=== PATIENT | female | born 1965 | race Caucasian/White ===

== ENCOUNTER 2016-11-29 23:40 | Inpatient (IN) | payer MEDICAID ==
[~2016-11-29] VITALS: Ht 167.6 cm; Wt 81.8 kg
--- NOTE | ~2016-11-29 | EC ---
PATIENT:DANN OWEN DATE OF SERVICE: 11/30/16 SEX: F MEDICAL RECORD: [id number] DATE OF : [birth year] LOCATION:D.M2 D.210 AGE OF PATIENT: 51 ADMISSION DATE: 11/30/16 REFERRING PHYSICIAN: INTERPRETING PHYSICIAN: GERALDINE GARCIA MD ECHOCARDIOGRAM REPORT ECHO CHARGES 4 ECHO COMPLETE CLINICAL DIAGNOSIS: DYSPNEA ECHOCARDIOGRAPHIC MEASUREMENTS (adult normal given) AC root (d.<3.7cm) 3.2 LV Septum d (<1.2 cm> 1.6 Valve Excursion 2.1 LV Septum (systole) 2.2 Left Atria (s.<4.0cm> 4.1 LVPW d(<1.2cm) 1.5 RV (d.<2.3cm) 2.4 LVPW (sytole) 2.2 LV diastole(<5.6CM) 4.7 MV E-F(>70mm/sec) LV systole 2.6 LVOT Diameter 1.7 MV exc.(>10mm) Est.ejection fraction (50-75%) Pericardial Effusion N DOPPLER: LVIT A 66.0 E 83.0 LA RVSP 40.0 LVOT 128 AOP1/2T Asc. Ao 178 RVOT 69.0 RA PA 100 AV Gradient Peak 13.0 AV Mean 6.9 AV Area 1.9 MV Gradient Peak 4.8 MV Mean 1.9 MV Area COMMENTS: Granite Cutter Apprentice: Ksenia HENDERSONOE Job Setter:1 Dr. Garcia TAPE# PACS DATE OF SERVICE: 11/30/2016 FINDINGS: 1. Left ventricular chamber size is within normal limits. Left ventricular systolic function is normal. Overall ejection fraction estimated at 60%. 2. Left atrium is enlarged at 4.1 cm. Right atrium and right ventricular chamber sizes are upper limits of normal. 3. Valvular structures have normal structure and motion. 4. Doppler interrogation reveals [id number] aortic insufficiency, moderate mitral regurgitation, moderate tricuspid regurgitation, no other ECHOCARDIOGRAM REPORT [id number] DANN OWEN valvular insufficiency or stenosis and pulmonary systolic pressure is estimated at 40 mmHg. 5. No evidence of pericardial effusion or left ventricular thrombus. TRANSINT:[id number] Voice Confirmation ID: [id number] DOCUMENT ID: [id number] GERALDINE GARCIA MD CC: [id number] DICTATION DATE: 12/01/16 1059 WATER TREATMENT PLANT MECHANIC: 12/01/16 [address] [facility] [address] [id number]
[~2016-11-29 23:40] MED LIST: TENORMIN50 MG PO
[2016-11-30 00:35] LABS: BASOPHILS 0.1 % (0.0-2.0); EOSINOPHILS 1.7 % (0-7); HEMOGLOBIN 14.9 g/dL (12-16); IMMATURE GRANULOCYTES 0.7 % (0-5); LYMPHOCYTES 17.4 % (15-50); MCH 31.3 pg (26.0-34.0); MCHC 32.4 g/dL (31.0-37.0); MCV 96.6 fL (80.0-100.0); MEAN PLATELET VOLUME 10.6 fL (7.4-10.4); MONOCYTES 5.9 % (2-11); NEUTROPHILS 74.2 % (40-80); PLATELET COUNT 230 10x3/uL (130-400); RBC 4.76 10x6/uL (4.00-5.40); RDW 14.5 % (11.5-14.5); WBC 11.5 10x3/uL (4.8-10.8)
[2016-11-30 00:41] LABS: ALBUMIN 3.5 g/dL (3.4-5.0); ANION GAP 14.9 mmol/L (8-16); BILIRUBIN - TOTAL 0.16 mg/dL (0.2-1.3); CALCIUM 8.4 mg/dL (8.5-10.1); CARBON DIOXIDE 25.7 mmol/L (21.0-32.0); CREATININE - SERUM 1.2 mg/dL (0.6-1.3); POTASSIUM - SERUM 3.6 mmol/L (3.5-5.1); PROTEIN - SERUM 7.3 g/dL (6.4-8.2)
[2016-11-30 00:51] LABS: TROPONIN-I 0.024 ng/mL (0.000-0.060)
[2016-11-30 02:37] VITALS: Ht 167.6 cm; Wt 81.8 kg
--- NOTE | 2016-11-30 03:56 | NUR ---
NEW ADMIT FROM EMERGENCY DEPARTMENT TO [facility] [address] MONTAÑO. ADMIT RELATED TO HTN AND CHF. UPON ADMIT VITALS STABLE. ALERT AND ORIENTED. PATIENT IS A FULL CODE. ORIENTED TO UNIT. PROVIDED A PM SNACK. DENIES PAIN AT THIS TIME. STATES SHE HAS NO FAMILY IN THIS AREA. SHE LIVES WITH A BOYFRIEND. ENCOURAGE TO EXPRESS NEEDS. CALL LIGHT IN REACH. CONTINUE TO MONITOR.
--- NOTE | 2016-11-30 09:15 | NUR ---
ADMINSITERED MORNING MEDICATIONS, PT IN BED, DENIES ANY NEEDS AT THIS TIME, PT ASSESSED, NAD NOTED, CALL LIGHT IN REACH, NAD NOTED, WILL CONTINUE TO MONITOR.
[2016-11-30 12:30] LABS: BASOPHILS 0 % (0.0-2.0); EOSINOPHILS 0 % (0-7); HEMATOCRIT 43.2 % (36.0-48.0); IMMATURE GRANULOCYTES 0.3 % (0-5); LYMPHOCYTES 15.8 % (15-50); MCH 30.8 pg (26.0-34.0); MCHC 32.4 g/dL (31.0-37.0); MCV 95.2 fL (80.0-100.0); MEAN PLATELET VOLUME 10.7 fL (7.4-10.4); MONOCYTES 3.2 % (2-11); NEUTROPHILS 80.7 % (40-80); PLATELET COUNT 219 10x3/uL (130-400); RBC 4.54 10x6/uL (4.00-5.40); RDW 14.3 % (11.5-14.5)
[2016-11-30 12:32] LABS: WBC 6.7 10x3/uL (4.8-10.8)
[2016-11-30 12:49] LABS: HEMOGLOBIN A1C 5.4 % (4.8-6.0)
[2016-11-30 13:05] LABS: CKMB 2.4 U/L (0.0-3.6); CREATINE KINASE 99 UL (21-215)
[2016-11-30 13:06] LABS: TROPONIN-I 0.116 ng/mL (0.000-0.060)
[2016-11-30] MEDS ORDERED: ZOLOFT50 MG PO (14:39)
[2016-11-30] MEDS ORDERED: BENZTROPINE MESY1 MG PO (14:40)
[2016-11-30] MEDS ORDERED: XANAX1 MG PO (14:41)
[2016-11-30] MEDS ORDERED: PROPRANOLOL HCL20 MG PO (14:41)
[2016-11-30] MEDS ORDERED: ABILIFY15 MG PO (14:42)
--- NOTE | 2016-11-30 17:24 | NUR ---
PT VERY ANXIOUS BECAUSE DR HAS NOT ORDERED PAIN AND ANXIETY MEDS. NO NEW ORDERS HAVE BEEN PUT IN, REGARDING MEDS. PLACED SCD'S BILAT ON PT. PT DENIES ANY OTHER NEEDS AT THIS TIME. CALL LIGHT IN REACH, NAD NOTED, WILL CONTINUE TO MONITOR.
[2016-11-30 18:17] LABS: CKMB 1.7 U/L (0.0-3.6); CREATINE KINASE 83 UL (21-215)
[2016-11-30 18:28] LABS: TROPONIN-I 0.113 ng/mL (0.000-0.060)
[2016-11-30 20:00] VITALS: BP 133/70
--- NOTE | 2016-11-30 20:30 | NUR ---
ADMIN SCHED MEDS AND TYLENOL 500MG PO PER ORDER REC FROM STEPHEN YEH RN FOR PATIENT'S C/O HEADACHE.
[2016-12-01 00:48] VITALS: BP 154/75
--- NOTE | 2016-12-01 00:54 | NUR ---
AWAKE WATCHING TV. REQUESTED SODA AND APPLESAUCE.
[2016-12-01 04:59] VITALS: BP 130/80
--- NOTE | 2016-12-01 05:00 | NUR ---
AWAKE WATCHING TV. REQUESTED A MILK AND QUENTIN CRACKERS.
[2016-12-01 05:34] LABS: BASOPHILS 0.1 % (0.0-2.0); EOSINOPHILS 0.4 % (0-7); HEMATOCRIT 39.6 % (36.0-48.0); HEMOGLOBIN 12.7 g/dL (12-16); IMMATURE GRANULOCYTES 0.3 % (0-5); LYMPHOCYTES 24.1 % (15-50); MCH 30.6 pg (26.0-34.0); MCHC 32.1 g/dL (31.0-37.0); MCV 95.4 fL (80.0-100.0); MEAN PLATELET VOLUME 10.7 fL (7.4-10.4); MONOCYTES 6.9 % (2-11); NEUTROPHILS 68.2 % (40-80); PLATELET COUNT 194 10x3/uL (130-400); RBC 4.15 10x6/uL (4.00-5.40); RDW 14.2 % (11.5-14.5)
[2016-12-01 05:39] LABS: WBC 12.1 10x3/uL (4.8-10.8)
[2016-12-01 05:55] LABS: ALBUMIN 2.9 g/dL (3.4-5.0); ANION GAP 9.5 mmol/L (8-16); BILIRUBIN - TOTAL 0.2 mg/dL (0.2-1.3); CALCIUM 8.3 mg/dL (8.5-10.1); CARBON DIOXIDE 32.1 mmol/L (21.0-32.0); CREATININE - SERUM 1.1 mg/dL (0.6-1.3); POTASSIUM - SERUM 3.6 mmol/L (3.5-5.1)
--- NOTE | 2016-12-01 07:45 | NUR ---
Verbalized name and , oxygen in place at 3l/nc. SCD hose in place. Complains of generalized arthritic pain. B/P 186/92. Scheduled routine medications to be administered.
[2016-12-01 07:49] VITALS: BP 186/92
[2016-12-01 08:04] LABS: CKMB 1.5 U/L (0.0-3.6); CREATINE KINASE 55 UL (21-215); TROPONIN-I 0.041 ng/mL (0.000-0.060)
--- NOTE | 2016-12-01 08:30 | NUR ---
Verbalized name and , sitting on side of bed completing breakfast, no complaints voiced. Oxygen replaced to nares. Respirations easy. Daughter at bedside.
[2016-12-01 11:19] VITALS: BP 179/100
[2016-12-01] MEDS ORDERED: BENAZEPRIL HCL10 MG PO (13:51)
[2016-12-01] MEDS ORDERED: NORVASC10 MG PO (13:51)
[2016-12-01] MEDS ORDERED: CATAPRES0.1 MG PO (13:51)
[2016-12-01] MEDS ORDERED: NICODERM C1 PATCH .1 TRANSDERM (13:51)
[2016-12-01] MEDS ORDERED: K-DUR20 MEQ PO (13:52)
[2016-12-01] MEDS ORDERED: NITRO-DUR0.2 MG TRANSDERM (13:52)
[2016-12-01] MEDS ORDERED: ASPIRIN81 MG PO (13:52)
[2016-12-01] MEDS ORDERED: LASIX40 MG PO (13:53)
--- NOTE | 2016-12-01 14:45 | NUR ---
Orders received for patient to discharge, telemetry removed. Left wrist saline lock removed, catheter intact with no complications noted, tolerated well. Patient removed Nicoderm patch stating " I'm getting me a cigarette as soon as I get out of here." Discharge instructions explained, stressed that medications called to [facility]. Verbbalized understanding. Awaiting arrival of [facility] bus.
--- NOTE | 2016-12-01 16:01 | NUR ---
Patient discharged without any incident, transported out to [facility] bus via W/C.
--- NOTE | 2016-12-01 17:30 | NUR ---
Patient Name: DANN OWEN Admission Status: ER Accout number: [id number] Admission Date: 11-30-2016 : 1965 Admission Diagnosis: Attending: RUFINO Current LOS: 1 Anticipated DC Date: 12-01-2016 Planned Disposition: Home Primary Insurance: MEDICAID [place] LATE ENTRY: Discharge Planning Comments: * Is the patient Alert and Oriented? Yes 0 * How many steps to enter\exit or inside your home? NONE 0 * PCP NONE REPORTS SHE WILL BE GOING TO SEE DR. EVETTE PARDO IN [place] FOR PRIMARY CARE BUT DOES NOT YET HAVE AN APPOINTMENT 0 * [facility] [address] * Preadmission Environment Home with Family 0 * ADLs Independent 0 * Equipment None 0 * Other Equipment NO MEDICAL EQUIPMENT PROVIDER PREFERENCE 0 * List name and contact numbers for known caregivers / representatives who currently or will assist patient after discharge: WILMER RODRIGUEZ, SISTER, WORKS AT [facility], 0 * Community resources currently utilized None 0 * Please name any agencies selected above. NONE 0 * Additional services required to return to the preadmission environment? No 0 * Can the patient safely return to the preadmission environment? Yes 0 * Has this patient been hospitalized within the prior 30 days at any hospital? No 0 CM RECEIVED ORDER FOR DRUG/ALCOHOL ASSESSMENT. CM MET WITH PT IN ROOM TO DISCUSS DISCHARGE PLANNING AND NEEDS. PT REPORTS LIVING AT HOME INDEPENDENTLY WITH HER BOY FRIEND. PT HAS NO MEDICAL EQUIPMENT AND NO OUTSIDE SERVICES ASSISTING IN THE HOME. CM DISCUSSED AVAILABILITY OF HOME HEALTH, REHAB SERVICES AND MEDICAL EQUIPMENT. PT DENIES DISCHARGE NEEDS, REPORTS SHE NEEDS [employer] BUS TO PICK HER UP FOR DISCHARGE HOME. PT REPORTS SHE DOES NOT USE DRUGS ON A REGULAR BASIS, REPORTS SHE WAS NOT FEELING GOOD AND SMOKED SOME MARIJUANA WITH A FRIEND AND HAD NOT IDEA IT WAS LACED WITH COCAINE. PT REPORTS SHE MADE A MISTAKE AND WILL NOT DO IT AGAIN. CM OFFERED COMMUNITY RESOURCES LISTING FOR INPATIENT, OUTPATIENT AND SUPPORT GROUPS FOR SUBSTANCE ABUSE ASSSITANCE, PT REFUSED. CM CALLED [employer], , SPOKE TO MARIANNA AND ARRANGE [facility] [facility] BUS TRANSPORT FOR THIS AFTERNOON. CONFIRMATION #[id number]. PT, BEDSIDE NURSE AND FEED MILL MANAGER NURSE NOTIFIED. Triple Air Valve Tester: Joaquin Miner
== END 2016-12-01 16:00 | disposition home or self-care (01) | DRG 305 ==
LOC: D.ER 23:40 → D.M2 11-30 01:45
PROVIDERS: Emergency Medicine; ADMIT Family Medicine
DX: I16.0 Hypertensive urgency (principal); F17.203 Nicotine dependence unspecified, with withdrawal; I11.0 Hypertensive heart disease with heart failure; I50.9 Heart failure, unspecified; J44.9 Chronic obstructive pulmonary disease, unspecified; M06.9 Rheumatoid arthritis, unspecified; F31.9 Bipolar disorder, unspecified; R74.8 Abnormal levels of other serum enzymes

== ENCOUNTER 2017-02-26 12:50 | Emergency (ER) | payer MEDICAID ==
[2016-11-30 02:37] VITALS: BMI 29.1
[~2017-02-26 12:50] MED LIST changes: +ABILIFY15 MG PO; +ASPIRIN81 MG PO; +BENAZEPRIL HCL10 MG PO; +BENZTROPINE MESY1 MG PO; +CATAPRES0.1 MG PO; +K-DUR20 MEQ PO; +LASIX40 MG PO; +NICODERM C1 PATCH .1 TRANSDERM; +NITRO-DUR0.2 MG TRANSDERM; +NORVASC10 MG PO; +PROPRANOLOL HCL20 MG PO; +XANAX1 MG PO; +ZOLOFT50 MG PO
== END 2017-02-26 14:33 | disposition home or self-care (01) ==
LOC: D.ER 12:50
DX: K04.7 Periapical abscess without sinus (principal); G43.909 Migraine, unspecified, not intractable, without status migrainosus; M62.838 Other muscle spasm; I50.9 Heart failure, unspecified; I10 Essential (primary) hypertension

== ENCOUNTER 2017-03-10 23:48 | Emergency (ER) | payer MEDICAID ==
[2016-11-30 02:37] VITALS: BMI 29.1
== END 2017-03-11 00:48 | disposition home or self-care (01) ==
LOC: D.ER 23:48
DX: F41.9 Anxiety disorder, unspecified (principal); F10.10 Alcohol abuse, uncomplicated; Z86.59 Personal history of other mental and behavioral disorders; F17.200 Nicotine dependence, unspecified, uncomplicated

== ENCOUNTER 2017-03-13 04:28 | Emergency (ER) | payer MEDICAID ==
[2016-11-30 02:37] VITALS: BMI 29.1
== END 2017-03-13 06:45 | disposition home or self-care (01) ==
LOC: D.ER 04:28
DX: F41.0 Panic disorder [episodic paroxysmal anxiety] (principal); I10 Essential (primary) hypertension; R06.00 Dyspnea, unspecified; F17.200 Nicotine dependence, unspecified, uncomplicated

== ENCOUNTER 2017-03-19 21:00 | Emergency (ER) | payer MEDICAID ==
[2016-11-30 02:37] VITALS: BMI 29.1
[2017-03-19 21:53] LABS: BASOPHILS 0.1 % (0-2); EOSINOPHILS 2.7 % (0-7); HEMATOCRIT 38.9 % (36.0-48.0); IMMATURE GRANULOCYTES 0.3 % (0-5); LYMPHOCYTES 52.5 % (15-50); MCH 30.7 pg (26.0-34.0); MCHC 33.4 g/dL (31.0-37.0); MCV 91.7 fL (80.0-100.0); MEAN PLATELET VOLUME 10.1 fL (7.4-10.4); MONOCYTES 7.3 % (2-11); NEUTROPHILS 37.1 % (40-80); PLATELET COUNT 180 10x3/uL (130-400); RBC 4.24 10x6/uL (4.00-5.40); RDW 13.9 % (11.5-14.5); WBC 7.8 10x3/uL (4.8-10.8)
[2017-03-19 22:09] LABS: ALBUMIN 3.4 g/dL (3.4-5.0); ALKALINE PHOSPHATASE 78 U/L (46-116); ALT (SGPT) 17 U/L (10-68); BILIRUBIN - TOTAL 0.22 mg/dL (0.2-1.3); CALC OSMOLALITY 277 mosm/kg (275-300); CALCIUM 8.5 mg/dL (8.5-10.1); CARBON DIOXIDE 27.2 mmol/L (21.0-32.0); CHLORIDE - SERUM 99 mmol/L (98-107); CREATININE - SERUM 1.3 mg/dL (0.6-1.3); GLUCOSE 104 mg/dL (74-106); PROTEIN - SERUM 6.5 g/dL (6.4-8.2); SODIUM 138 mmol/L (136-145); UREA NITROGEN 18 mg/dL (7-18); eGFR NON AFRICAN AMERICAN 45 mL/min (90-120)
[2017-03-19 22:12] LABS: POTASSIUM - SERUM 2.9 mmol/L (3.5-5.1)
[2017-03-19 22:21] LABS: CKMB 2.8 U/L (0.0-3.6); CREATINE KINASE 197 UL (21-215); TROPONIN-I < 0.017 ng/mL (0.000-0.060)
[2017-03-20 00:49] LABS: APPEARANCE CLEAR (CLEAR); BILIRUBIN NEGATIVE (NEGATIVE); COLOR YELLOW (YELLOW); GLUCOSE NEGATIVE (NEGATIVE); KETONE NEGATIVE (NEGATIVE); LEUKOCYTE ESTERASE NEGATIVE (NEGATIVE); NITRITE NEGATIVE (NEGATIVE); PROTEIN NEGATIVE (NEGATIVE); UROBILINOGEN NORMAL (NORMAL)
[2017-03-20 00:56] LABS: UDS - AMPHET NEGATIVE QUAL (NEGATIVE); UDS - BARB NEGATIVE QUAL (NEGATIVE); UDS - BENZO POSITIVE QUAL (NEGATIVE); UDS - COCAINE POSITIVE QUAL (NEGATIVE); UDS - METH NEGATIVE QUAL (NEGATIVE); UDS - OPIATE NEGATIVE QUAL (NEGATIVE); UDS - PCP NEGATIVE QUAL (NEGATIVE); UDS - THC POSITIVE QUAL (NEGATIVE)
== END 2017-03-20 03:25 | disposition home or self-care (01) ==
LOC: D.ER 21:00
PROVIDERS: Family Medicine; Physician Assistant Medical
DX: R07.9 Chest pain, unspecified (principal); F10.10 Alcohol abuse, uncomplicated; F19.90 Other psychoactive substance use, unspecified, uncomplicated; F17.200 Nicotine dependence, unspecified, uncomplicated

== ENCOUNTER 2017-04-08 14:30 | Emergency (ER) | payer MEDICAID ==
[2016-11-30 02:37] VITALS: BMI 29.1
== END 2017-04-08 15:45 | disposition home or self-care (01) ==
LOC: D.ER 14:30
DX: F41.9 Anxiety disorder, unspecified (principal); M25.50 Pain in unspecified joint

== ENCOUNTER 2017-05-07 10:06 | Emergency (ER) | payer MEDICAID ==
[2016-11-30 02:37] VITALS: BMI 29.1
== END 2017-05-07 13:33 | disposition home or self-care (01) ==
LOC: D.ER 10:06
DX: F14.10 Cocaine abuse, uncomplicated (principal); I10 Essential (primary) hypertension; F17.200 Nicotine dependence, unspecified, uncomplicated; R00.1 Bradycardia, unspecified

== ENCOUNTER 2017-11-08 18:52 | Emergency (ER) | payer MEDICAID ==
[2016-11-30 02:37] VITALS: BMI 29.1
== END 2017-11-08 20:33 | disposition home or self-care (01) ==
LOC: D.ER 18:52
DX: M25.50 Pain in unspecified joint (principal); F41.9 Anxiety disorder, unspecified; I10 Essential (primary) hypertension; I50.9 Heart failure, unspecified

== ENCOUNTER 2017-12-02 20:04 | Emergency (ER) | payer MEDICAID ==
[2016-11-30 02:37] VITALS: BMI 29.1
== END 2017-12-02 21:08 | disposition home or self-care (01) ==
LOC: D.ER 20:04
DX: F41.9 Anxiety disorder, unspecified (principal); F32.9 Major depressive disorder, single episode, unspecified; F10.11 Alcohol abuse, in remission; I10 Essential (primary) hypertension; I50.9 Heart failure, unspecified

== ENCOUNTER 2018-01-10 19:30 | Emergency (ER) | payer MEDICAID ==
[2016-11-30 02:37] VITALS: BMI 29.1
[2018-01-10 20:49] LABS: APPEARANCE CLOUDY (CLEAR); BILIRUBIN NEGATIVE (NEGATIVE); COLOR STRAW (YELLOW); GLUCOSE NEGATIVE (NEGATIVE); KETONE NEGATIVE (NEGATIVE); NITRITE NEGATIVE (NEGATIVE); PROTEIN NEGATIVE (NEGATIVE); UROBILINOGEN NORMAL (NORMAL)
[2018-01-10 20:52] LABS: BACTERIA FEW /hpf (NONE SEEN); RED CELLS - URINE 0-5 /hpf (0-5)
== END 2018-01-10 21:42 | disposition home or self-care (01) ==
LOC: D.ER 19:30
PROVIDERS: Physician Assistant Medical
DX: S00.12XA Contusion of left eyelid and periocular area, initial encounter (principal); Y04.2XXA Assault by strike against or bumped into by another person, initial encounter; Y93.89 Activity, other specified; Y92.410 Unspecified street and highway as the place of occurrence of the external cause; S01.81XA Laceration without foreign body of other part of head, initial encounter; N39.0 Urinary tract infection, site not specified; I10 Essential (primary) hypertension; F17.200 Nicotine dependence, unspecified, uncomplicated

== ENCOUNTER 2018-01-17 17:53 | Emergency (ER) | payer MEDICAID ==
[~2018-01-17] VITALS: Ht 167.6 cm; Wt 84.1 kg
[2018-01-17 18:05] VITALS: Ht 167.6 cm; Wt 84.1 kg
[2018-01-17 18:55] LABS: APPEARANCE HAZY (CLEAR); BILIRUBIN NEGATIVE (NEGATIVE); COLOR YELLOW (YELLOW); GLUCOSE NEGATIVE (NEGATIVE); KETONE NEGATIVE (NEGATIVE); NITRITE NEGATIVE (NEGATIVE); PROTEIN TRACE mg/dL (NEGATIVE); SPECIFIC GRAVITY 1.025 (1.005-1.020); UROBILINOGEN NORMAL (NORMAL)
[2018-01-17 18:56] LABS: BACTERIA MANY /hpf (NONE SEEN); MUCUS <1+ /lpf (NONE SEEN); WHITE CELLS - URINE >50 /hpf (0-5)
[2018-01-17] MEDS ORDERED: DIFLUCAN100 MG PO (21:15)
[2018-01-17] MEDS ORDERED: LEVAQUIN500 MG PO (21:15)
[2018-01-17 21:25] VITALS: BP 134/74
[2018-01-19 22:06] LABS: CHLAMYDIA TRACHOMATIS, NAA Negative (Negative)
== END 2018-01-17 21:25 | disposition home or self-care (01) ==
LOC: D.ER 17:53
PROVIDERS: Emergency Medicine; Family Medicine
DX: N39.0 Urinary tract infection, site not specified (principal); N76.0 Acute vaginitis; N89.8 Other specified noninflammatory disorders of vagina; F17.200 Nicotine dependence, unspecified, uncomplicated